=== PATIENT | male | born 2000 | race Caucasian/White ===

== ENCOUNTER 2024-01-10 09:59 | Observation (INO) | payer SELFPAY ==
[2024-01-10 11:37] LABS: #Basophils 0.06 10x3/uL (0.0-0.2); %Basophils 0.5 % (0.0-1.0); %Lymphocytes 14.6 % (21.0-51.0); %Monocytes 12.2 % (0.0-10.0); %Neutrophils 71.4 % (42.0-75.0); Hematocrit 47.2 % (42.0-52.0); Hemoglobin 16.2 g/dL (14.0-18.0); Mean Corpuscular HGB CONC 34.3 g/dL (32.0-36.0); Mean Corpuscular Hemoglobin 29.6 pg (27.0-31.0); Mean Corpuscular Volume 86.1 fL (78.0-98.0); Mean Platelet Volume 9.4 fL (7.4-10.4); Platelet Count 354 10x3/uL (130-400); RBC Distribution Width 12.2 % (11.5-14.5); Red Blood Cell (RBC) Count 5.48 mill/uL (4.70-6.10)
[2024-01-10] MEDS ORDERED: Dexamethasone 10 MG/ML VIAL ONE (11:39)
[2024-01-10] MEDS ORDERED: Ketorolac Tromethamine 30 MG (1 mL) VIAL ONE ×2 (11:40→19:02)
[2024-01-10] MEDS ORDERED: Clindamycin/D5W 600 mg/50 ml Premix Bag ONE (11:41)
[2024-01-10 11:55] LABS: ALT (SGPT) 22 U/L (8-55); AST (SGOT) 13 U/L (5-34); Alkaline Phosphatase 65 U/L (40-110); Anion Gap 15 mmol/L (10-20); BUN (Urea Nitrogen) 25 mg/dL (8.9-20.6); Bilirubin, Total 0.5 mg/dL (0.2-1.2); Calc. Creatinine Clearance 0 mL/min (70-130); Calcium 9.8 mg/dL (7.8-10.44); Carbon Dioxide 27 mmol/L (22-29); Chloride 97 mmol/L (98-107); Estimated GFR 116; Globulin 4.1 g/dL (2.4-3.5); Glucose 85 mg/dL (70-105); Potassium 4.4 mmol/L (3.5-5.1); Protein, Total 8.1 g/dL (6.0-8.3); Sodium 135 mmol/L (136-145)
[2024-01-10] MEDS ORDERED: Ondansetron PF 4 MG/2 ML Vial ONE ×2 (12:25→18:51)
[2024-01-10] MEDS ORDERED: Morphine 4 MG/ML VIAL ONE ×2 (12:25→14:31)
[2024-01-10] MEDS ORDERED: Morphine 4 MG/ML VIAL SLOW IVP PRN (14:13)
[2024-01-10] MEDS ORDERED: Ondansetron ODT 4 MG TAB SL PRN (14:15)
[2024-01-10] MEDS ORDERED: Ondansetron PF 4 MG/2 ML Vial IVP PRN (14:15)
[2024-01-10] MEDS ORDERED: Acetaminophen 325 MG TAB PO PRN (14:15)
[2024-01-10] MEDS: Morphine 4 MG/ML VIAL SLOW IVP PRN (17:26)
[2024-01-10] MEDS: LevoFLOXacin 750 mg/D5W 750 MG in Premix 1 BAG IVPB SCH (17:33)
[2024-01-10] MEDS ORDERED: Midazolam HCl 2 mg/2 ml Vial ONE (18:03)
[2024-01-10] MEDS ORDERED: fentaNYL PF 100 MCG/2 ML SYRINGE ONE (18:03)
[2024-01-10] MEDS ORDERED: PROPOFOL 20 ML ONE (18:03)
[2024-01-10] MEDS ORDERED: EPINEPHrine 1 MG/ML VIAL ONE (18:09)
[2024-01-10] MEDS ORDERED: Lidocaine 1% (PF) 30 ML VIAL ONE (18:09)
[2024-01-10] MEDS ORDERED: Chlorhexidine Gluconate 15 ML UDCUP SSP ONE (18:09)
[2024-01-10] MEDS ORDERED: Rocuronium Bromide 10 MG/ML (10ML VIAL) ONE (18:48)
[2024-01-10] MEDS ORDERED: Dexamethasone 20 MG/5 ML VIAL ONE (18:51)
[2024-01-10] MEDS ORDERED: Glycopyrrolate 0.2 MG/ML 5 ML SYRINGE ONE (19:09)
[2024-01-10] MEDS ORDERED: NEOSTIGMINE 3 MG/3 ML SYRINGE ONE (19:09)
[2024-01-10] MEDS ORDERED: Meperidine HCl/PF 25 MG/ML VIAL SLOW IVP PRN (19:29)
[2024-01-10] MEDS ORDERED: HYDROmorphone 2 MG/ML VIAL SLOW IVP PRN (19:29)
[2024-01-10] MEDS ORDERED: Ondansetron HCl/PF 4 MG/2 ML Vial IVP PRN (19:29)
[2024-01-10] MEDS ORDERED: Promethazine HCl 25 MG/ML VIAL IM PRN (19:29)
[2024-01-10] MEDS ORDERED: fentaNYL 50 mcg/mL 1 mL Vial ONE ×2 (19:46→20:02)
[2024-01-10] MEDS ORDERED: Clindamycin/D5W 900 MG in Premix 1 BAG IVPB SCH (20:00)
[2024-01-10] MEDS: metroNIDAZOLE 500 MG in Premix 1 BAG IVPB SCH (20:44)
[2024-01-10] MEDS: HYDROcodone/Acetaminophen 10/325 mg Tablet PO PRN (23:00)
[2024-01-11] MEDS: Morphine 2 MG/ML VIAL SLOW IVP PRN (01:13)
[2024-01-11 06:03] LABS: #Basophils Less than 0.03 10x3/uL (0.0-0.2); #Eosinophils Less than 0.03 10x3/uL (0.0-0.7); %Basophils 0.1 % (0.0-1.0); %Lymphocytes 6.3 % (21.0-51.0); %Monocytes 3.7 % (0.0-10.0); %Neutrophils 89.5 % (42.0-75.0); Hematocrit 43.5 % (42.0-52.0); Mean Corpuscular HGB CONC 34.5 g/dL (32.0-36.0); Mean Corpuscular Hemoglobin 29.3 pg (27.0-31.0); Mean Platelet Volume 9.4 fL (7.4-10.4); Platelet Count 352 10x3/uL (130-400); RBC Distribution Width 11.9 % (11.5-14.5); Red Blood Cell (RBC) Count 5.12 mill/uL (4.70-6.10)
[2024-01-11 06:34] LABS: Anion Gap 17 mmol/L (10-20); BUN (Urea Nitrogen) 25 mg/dL (8.9-20.6); Calc. Creatinine Clearance 153 mL/min (70-130); Calcium 9.4 mg/dL (7.8-10.44); Carbon Dioxide 23 mmol/L (22-29); Chloride 100 mmol/L (98-107); Estimated GFR 126; Glucose 150 mg/dL (70-105); Potassium 4.6 mmol/L (3.5-5.1); Sodium 135 mmol/L (136-145)
[2024-01-11 21:28] VITALS: BP 131/77; TEMP 97.5
== END 2024-01-13 16:26 | disposition home or self-care (01) ==
LOC: SUATTDRO 09:59 → ERS 09:59 → SURG B 13:55 → UNDOADMOB 16:22 → SURG B 16:22 → OBSVTOIN 01-12 08:03 → INTOOBSV 01-12 08:03 → UNDODISOB 01-12 10:35
PROVIDERS: ADMIT Internal Medicine; ATTEND Internal Medicine
PROC: 0J910ZZ Drainage of Face Subcutaneous Tissue and Fascia, Open Approach (ICD-10-PCS; principal; 2024-01-10)
DX: K12.2 Cellulitis and abscess of mouth (principal); Z88.0 Allergy status to penicillin; Z79.2 Long term (current) use of antibiotics; Z79.1 Long term (current) use of non-steroidal anti-inflammatories (NSAID)
CPT/HCPCS: 36415; 70487; 80048; 80053; 83605; 84145; 85025; 87040; 96361; 96365; 96375; 96376; G0378; J0171; J1100; J1885; J1956; J2250; J2272; J2405; J2704; J3010; J3490